=== PATIENT | female | born 1935 | race Asian ===

== ENCOUNTER 2018-10-09 08:06 | Emergency (ER) | payer MEDICAID, MEDICARE ==
[~2018-10-09] VITALS: Ht 165.1 cm; Wt 52.3 kg
[2018-10-09] MEDS ORDERED: POTA8TAB7 PO (08:13)
[2018-10-09] MEDS ORDERED: AMLO5TAB66 PO (08:13)
[2018-10-09] MEDS ORDERED: DESL5TAB PO (08:13)
[2018-10-09] MEDS ORDERED: ATOR10TA69 PO (08:13)
[2018-10-09] MEDS ORDERED: VALS80TA32 PO (08:13)
[2018-10-09] MEDS ORDERED: ACETAMINOPHEN 500 MG TABLET PO ONE (09:15)
[2018-10-09] MEDS ORDERED: GuaiFENesin/D-METHORPHAN [SUGAR-FREE] 200-20MG/10 ML SYRUP UDCUP PO ONE (09:15)
[2018-10-09 09:22] LABS: EOSINOPHILS % (AUTO) 3.7 % (1.0-6.0); HEMATOCRIT 37.7 % (36-46); HEMOGLOBIN 12.6 g/dL (12.0-16.0); LYMPHOCYTES # (AUTO) 0.9 K/uL (1.0-4.8); LYMPHOCYTES % (AUTO) 36.6 % (22.0-44.0); MEAN CORPUSCULAR HEMOGLOBIN 29.8 pg (26.0-34.0); MEAN CORPUSCULAR HGB CONC 33.5 G/dL (31.0-37.0); MEAN CORPUSCULAR VOLUME 89 fL (80-100); MONOCYTES # (AUTO) 0.4 K/uL (0.1-1.0); MONOCYTES % (AUTO) 15.4 % (2.0-9.0); NEUTROPHILS % (AUTO) 43.3 % (40.0-70.0); PLATELET COUNT (AUTO) 198 K/uL (150-450); RED BLOOD CELL COUNT(AUTO) 4.23 MIL/uL (4.00-5.20); RED CELL DISTRIBUTION WIDTH 13.4 % (11.5-14.5)
[2018-10-09 09:31] LABS: CALCIUM, TOTAL 8.1 mg/dL (8.8-10.5); CREATININE 1.15 mg/dL (0.60-1.30); POTASSIUM 3.9 mmol/L (3.5-5.1)
[2018-10-09 09:37] LABS: ALBUMIN 2.9 g/dL (3.4-5.0); BILIRUBIN,TOTAL 0.2 mg/dL (0.1-1.0); TOTAL PROTEIN, SERUM 6.9 g/dL (6.4-8.2)
[2018-10-09 10:20] VITALS: BP 168/76
== END 2018-10-09 10:38 | disposition home or self-care (01) ==
LOC: EDSEX 08:06 → EMS 08:06
DX: J40 Bronchitis, not specified as acute or chronic (principal); J06.9 Acute upper respiratory infection, unspecified; D72.819 Decreased white blood cell count, unspecified; E44.0 Moderate protein-calorie malnutrition; H26.9 Unspecified cataract
CPT/HCPCS: 93005

== ENCOUNTER 2023-06-19 14:14 | Emergency (ER) | payer MEDICARE, MEDICAID ==
[~2023-06-19] VITALS: Ht 152.4 cm; Wt 51.3 kg
[~2023-06-19 14:14] MED LIST: AMLO5TAB66 PO; ATOR10TA69 PO; DESL5TAB45 PO; POTA8TAB7 PO; VALS80TA32 PO
[2023-06-19 14:23] VITALS: BP 105/39; PULSE 54; RESP 20
[2023-06-19] MEDS ORDERED: ACET325T51 PO (14:31)
[2023-06-19] MEDS ORDERED: ALTEPLASE PER STROKE PROTOCOL CLINICAL ONE (14:45)
[2023-06-19] MEDS ORDERED: WATER FOR INJECTION STERILE IV ONE ×2 (14:45)
[2023-06-19] MEDS ORDERED: ALTEPLASE IV ONE ×2 (14:45)
[2023-06-19] MEDS ORDERED: SODIUM CHLORIDE 0.9% 100 ML ONE (14:55)
[2023-06-19 15:05] LABS: COVID AG,FIA SOURCE NASAL SWAB
[2023-06-19 15:22] LABS: BASOPHILS % (AUTO) 0.4 % (0.0-2.0); EOSINOPHILS % (AUTO) 6.2 % (1.0-6.0); HEMATOCRIT 30.2 % (36-46); HEMOGLOBIN 9.8 g/dL (12.0-16.0); LYMPHOCYTES # (AUTO) 2.2 K/uL (1.0-4.8); MEAN CORPUSCULAR HEMOGLOBIN 29.5 pg (26.0-34.0); MEAN CORPUSCULAR HGB CONC 32.5 G/dL (31.0-37.0); MEAN CORPUSCULAR VOLUME 91 fL (80-100); MONOCYTES # (AUTO) 0.5 K/uL (0.1-1.0); MONOCYTES % (AUTO) 6.6 % (2.0-9.0); NEUTROPHILS # (AUTO) 3.7 K/uL (1.8-7.7); NEUTROPHILS % (AUTO) 53.8 % (40.0-70.0); PLATELET COUNT (AUTO) 171 K/uL (150-450); RED BLOOD CELL COUNT(AUTO) 3.33 MIL/uL (4.00-5.20); RED CELL DISTRIBUTION WIDTH 14.7 % (11.5-14.5); WHITE BLOOD COUNT (AUTO) 6.8 K/uL (4.5-11.0)
[2023-06-19 15:23] LABS: SARS-COV2 (COVID) ANTIGEN,FIA Negative (Negative)
[2023-06-19 15:33] LABS: CALCIUM, TOTAL 7.6 mg/dL (8.8-10.5); CREATININE 1.46 mg/dL (0.60-1.30); POTASSIUM 3.1 mmol/L (3.5-5.1)
[2023-06-19 15:36] LABS: INR 1.1 (0.9-1.1); PROTHROMBIN TIME 11.4 SEC (9.4-11.6)
[2023-06-19 15:38] LABS: ALBUMIN 2.5 g/dL (3.4-5.0); BILIRUBIN,TOTAL 0.4 mg/dL (0.1-1.0)
[2023-06-19 15:42] LABS: TROPONIN I-HIGH SENSITIVITY 10 ng/L (<51)
== END 2023-06-19 16:08 | disposition short-term general hospital (02) ==
LOC: EMS 14:14
DX: I71.00 Dissection of unspecified site of aorta (principal); I63.9 Cerebral infarction, unspecified; Z90.49 Acquired absence of other specified parts of digestive tract; H54.40 Blindness, one eye, unspecified eye; Z20.822 Contact with and (suspected) exposure to COVID-19
CPT/HCPCS: 99285; 70496; 71045; 87426; 80053; 84484; 85025; 85610; 85730; 86850; 86900; 86901; 70498; 82948; 93005; 70450; 36415; G0480; J7050; J2997